=== PATIENT | female | born 1995 | race Hispanic/Latino ===

== ENCOUNTER 2017-03-14 13:04 | Emergency (ER) | payer MEDICAID ==
[2017-03-14 13:29] VITALS: BP 150/66; PULSE 110; RESP 18; TEMP 98; O2SAT 100
--- NOTE | 2017-03-14 13:51 | ED PDOC ---
HPI: Psych/Substance Abuse Time Seen by Provider: 03/14/17 13:30 Chief Complaint (Nursing): Psychiatric Evaluation Chief Complaint (Provider): Anxiety History Per: Patient History/Exam Limitations: no limitations Onset/Duration Of Symptoms: Days (1) Additional Complaint(s): Patient is a 21 y/o female with a past medical history of depression presenting to the emergency department for anxiety that has become increasingly worse over the past week. Reports that she is unable to sleep. Also notes that she's been having difficulty finding psychiatric help due to insurance and is here for assistance. Denies suicidal ideation, homicidal ideation, or other complaints. Of note, patient was at the [facility] psych unit last month. She also lost her prescription for antidepressants. PCP: Dr. Eddie Bishop Past Medical History Reviewed: Historical Data, Nursing Documentation, Vital Signs Vital Signs: Last Vital Signs Temp 98 F 03/14/17 13:25 Pulse 110 H 03/14/17 13:25 Resp 18 03/14/17 13:25 BP 150/66 03/14/17 13:25 Pulse Ox 100 03/14/17 13:25 - Medical History PMH: Anxiety, Depression, Fractures (left ankle) Denies: Diabetes, Hepatitis, HIV, HTN, Seizures, Sexually Transmitted Disease - Surgical History Other surgeries: Foot surgery - Family History Family History: States: Unknown Family Hx - Social History Current smoker - smoking cessation education provided: Yes Ex-Smoker (has not smoked in the last 12 months): No Alcohol: None Drugs: Denies - Immunization History Hx Tetanus Toxoid Vaccination: No Hx Influenza Vaccination: Yes Hx Pneumococcal Vaccination: No - Home Medications Home Medications: Ambulatory Orders Medication Instructions Recorded Buprenorphine HCl/Naloxone HCl 1 mary SL Q30D 03/04/17 [Suboxone 8 mg-2 mg] Clonazepam [Klonopin] 2 mg PO BID 03/04/17 Gabapentin 600 mg PO TID 03/04/17 Zolpidem [Ambien] 5 mg PO DAILY #4 tab 03/14/17 - Allergies Allergies/Adverse Reactions: Allergies Allergy/AdvReac Type Severity Reaction Status Date / Time No Known Allergies Allergy Verified 03/04/17 23:21 Review of Systems ROS Statement: Except As Marked, All Systems Reviewed And Found Negative Psych: Positive for: Anxiety. Negative for: Suicidal ideation (or homicidal ideation) Physical Exam - Reviewed Nursing Documentation Reviewed: Yes Vital Signs Reviewed: Yes - Physical Exam Appears: Positive for: Non-toxic, No Acute Distress Head Exam: Positive for: ATRAUMATIC, NORMAL INSPECTION, NORMOCEPHALIC Skin: Positive for: Normal Color, Warm, Dry Eye Exam: Positive for: Normal appearance Neck: Positive for: Normal Cardiovascular/Chest: Positive for: Regular Rate, Rhythm Respiratory: Negative for: Accessory Muscle Use, Respiratory Distress Extremity: Positive for: Normal ROM Neurologic/Psych: Positive for: Alert, Oriented (x3) - ECG O2 Sat by Pulse Oximetry: 100 (RA) Pulse Ox Interpretation: Normal Medical Decision Making Medical Decision Making: Time: 13:43 Initial impression: Anxiety Initial plan: Crisis evaluation Xanax 0.5 mg PO Monitor patient for improvement 13:45 Patient is undressed. At this time, patient does not require a 1:1 sitter. Crisis made aware of patient. 15:10 Patient is pacing back and forth in her room; she reports feeling better after having taken Xanax. Declined further medication for anxiety relief. Crisis evaluation pending. 15:36 Pt has become more anxious-pt is requesting more medication. will be given ativan PO 1mg. crisis eval pending. 16:58 Patient is now being evaluated by crisis. 17:46: PT is cleared by daniel , philip with anxiety under MD Se pt feels comfortable going home pt req. medication for sleeping rolando Rx [email or web address].will follow up with [facility]. ~ Scribe Attestation: Documented by Bushra Rachel, acting as a scribe for JUDY Peace. Provider Scribe Attestation: All medical record entries made by the Scribe were at my direction and personally dictated by me. I have reviewed the chart and agree that the record accurately reflects my personal performance of the history, physical exam, medical decision making, and the department course for this patient. I have also personally directed, reviewed, and agree with the discharge instructions and disposition. Disposition - Clinical Impression Clinical Impression: Anxiety - Patient ED Disposition Is Patient to be Admitted: No Counseled Patient/Family Regarding: Diagnosis, Need For Followup, Rx Given - Disposition Disposition: Routine/Home Disposition Time: 17:47 Condition: STABLE Prescriptions: Zolpidem [Ambien] 5 mg PO DAILY #4 tab Instructions: Anxiety (ED) Forms: [employer] (Kinyarwanda)
== END 2017-03-14 18:10 | disposition home or self-care (01) ==
LOC: H.ER 13:04
DX: F41.9 Anxiety disorder, unspecified (principal); F32.9 Major depressive disorder, single episode, unspecified